=== PATIENT | female | born 1990 | race Caucasian/White ===

== ENCOUNTER 2021-01-18 02:49 | Emergency (ER) | payer OTHER ==
[~2021-01-18] VITALS: Ht 162.6 cm; Wt 78.7 kg
[2021-01-18 02:51] VITALS: BP 118/76
== END 2021-01-18 03:35 | disposition left against medical advice (07) ==
LOC: EMS 02:52
DX: R51.9 Headache, unspecified (principal); Z53.21 Procedure and treatment not carried out due to patient leaving prior to being seen by health care provider